=== PATIENT | female | born 1980 | race Caucasian/White ===

== ENCOUNTER 2016-07-24 17:23 | Emergency (ER) | payer OTHER, SELFPAY ==
[2016-07-24] MEDS ORDERED: methylPREDNISolone INJ 125 MG/2 ML VIAL (J2930) As Ordered ONE (18:40)
[2016-07-24] MEDS ORDERED: predniSONE 20 MG TAB As Ordered ONE (18:46)
[2016-07-24] MEDS ORDERED: IPRATROPIUM 0.5MG/ALBUTEROL 2.5MG INH SOL UD 3ML (DUONEB)(J7620) As Ordered ONE (18:47)
[2016-07-24] MEDS ORDERED: ALBUTEROL SULFATE 2.5 MG/0.5 ML INH NEB SOLN As Ordered ONE (19:00)
--- NOTE | 2016-07-24 19:34 | REP ---
Chest two views HISTORY: Shortness of breath Comparison: 09/07/2015 The lungs are clear. The heart is normal in size. The pulmonary vasculature is normal in appearance. The bony structure is intact. IMPRESSION: No acute disease. Signed by Dewey Cornelius MD 07/24/2016 07:25 P
--- NOTE | 2016-07-24 19:59 | EDDOCDS ---
Physician Documentation [facility] Name: Keya Garduno Age: 36 yrs Sex: Female : 1980 Arrival Date: 07/24/2016 Time: 17:23 Bed Private MD: NO PRIMARY PHYSICIAN, . Disposition: 07/24/16 19:40 Discharged to Home/Self Care. Impression: Mild intermittent asthma with (acute) exacerbation. - Condition is Stable. - Discharge Instructions: Asthma, Adult. - Prescriptions for Prednisone 20 mg Oral Tablet - take 2 tablet by ORAL route once daily for 5 days; 10 tablet. Albuterol Sulfate 90 mcg/actuation Inhalation HFA Aerosol Inhaler - inhale 2 puff by INHALATION route every 4 hours As needed; 1 Inhaler. Albuterol Sulfate 2.5 mg /3 mL (0.083 %) Inhalation Solution for Nebulization - inhale 1 unit by NEBULIZATION route 4 times per day As needed; 1 box. - Medication Reconciliation, Local Pharmacy Hours form. - [facility]; When: 2 - 3 days; Reason: Recheck today's complaints, Continuance of care. - Problem is new. - Symptoms have improved. Historical: - Allergies: Keflex (Swelling); - Home Meds: 1. loratadine 10 mg Oral tab 1 tab once daily - PMHx: Environmental allergies; Asthma; - PSHx: none; - Social history: Smoking status: Patient uses tobacco products, current every day smoker. No barriers to communication noted, The patient speaks fluent Macedonian. - Family history: No immediate family members are acutely ill. - : The pt / caregiver states he / she is not on anticoagulants. Home medication list is obtained from the patient. - Exposure Risk Screening:: None identified. 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 1 in. (154.94 cm) (R); Pain 4/10; 19:55 BP 147 / 82; Pulse 87; Resp 17; Temp 98; Pulse Ox 97% ; mb9 17:26 Body Mass Index 23.62 (56.70 kg, 154.94 cm) gr2 MDM: 18:19 Financial registration complete. gb 18:29 [facility] Payment Agreement was scanned into [employer] and attached to record. gb 18:30 methylPREDNISolone Sodium Succinate 125 mg IM once ordered. ck7 18:30 Albuterol-Ipratropium 3 ml Inhalation once ordered. ck7 18:30 Call Respiratory ordered. ck7 18:30 Peak Flow Pre & Post ordered. ck7 18:31 Chest, 2 View (pa\\E\\lat) Ordered. EDMS 18:32 Call Respiratory complete. ajs 18:43 ED course: PT QUESTIONING THE NEED FOR A CHEST X-RAY, EXPLAINED THAT PNEUMONIA AND ck7 PNEUMOTHORAX NEED TO BE RULED OUT, PT HAS DECREASED LUNG SOUNDS WITH ACTIVE WHEEZING. PT NOW REQUESTING PREDNISONE ORALLY, NOT SOLU-MEDROL INJECTION. WILL CHANGE ORDER TO PREDNISONE PER PATIENT'S REQUEST. 18:45 predniSONE 40 mg PO once; administer with food or milk ordered. ck7 19:00 Peak Flow Pre & Post complete. cs15 19:04 Albuterol 2.5 mg Nebulizer once ordered. ck7 Administered Medications: 18:45 Not Given (Patient Refused; pt refused stating, "Can't he give me prednisone? I know mb9 that works."): methylPREDNISolone Sodium Succinate 125 mg IM once 18:50 Drug: predniSONE 40 mg [prednisone 20 mg tablet (2 tabs)] Route: PO; mb9 18:52 Drug: Albuterol-Ipratropium 3 ml [ipratropium-albuterol 0.5 mg-3 mg(2.5 mg base)/3 mL cs15 nebulization soln (3 mL)] Route: Inhalation; 19:04 Drug: Albuterol 2.5 mg [albuterol sulfate 2.5 mg/0.5 mL solution for nebulization (0.5 cs15 mL)] Route: Nebulizer; Signatures: Dispatcher [employer] EDMS Shama Gloria, Roseanne Mae Christopher, RPA-C RPA-Cck7 Melanie Maloney RN RN ms18 Deangelo Akins RN RN mb9 Jagjit Lovett,RT RT cs15 The chart was reviewed and I authenticate all verbal orders and agree with the evaluation and treatment provided.Attachments: 18:29 [facility] Payment Agreement gb MTDD
--- NOTE | 2016-07-24 19:59 | EDDOCDS ---
Nurse's Notes [facility] Name: Keya Garduno Age: 36 yrs Sex: Female : 1980 Arrival Date: 07/24/2016 Time: 17:23 Bed PD Private MD: NO PRIMARY PHYSICIAN, . Diagnosis: Mild intermittent asthma with (acute) exacerbation Presentation: 07/24 17:28 Presenting complaint: Patient states: that she has asthma and states that her SOB has ms18 gotten worse over the last few hours. Pt states she ran out of albuterol. Adult Sepsis Screening: The patient does not have new or worsening altered mentation. Patient's respiratory rate is less than 22. Systolic blood pressure is greater than 100. Patient has a qSOFA score of 0- Negative Sepsis Screen. Suicide/Homicide risk assessment- the patient denies having any suicidal and/or homicidal ideations and does not present with any other emotional, behavioral or mental health complaints. Status: Patient is not a customer service representative teacher or dependent. Transition of care: patient was not received from another setting of care. 17:28 Acuity: ARACELI Level 3 ms18 17:28 Method Of Arrival: Walkin/Carried/Asstd ms18 Triage Assessment: 17:29 General: Appears in no apparent distress, comfortable, Behavior is appropriate for age, ms18 cooperative. Pain: Denies pain. Location: chest Quality of pain is described as tight. HIV screening NA for this visit Offered previously. Neurological: No deficits noted. Respiratory: Onset: The symptoms/episode began/occurred this morning, Airway is patent Respiratory effort is labored, Respiratory pattern is regular, symmetrical. Derm: Skin is pink, warm & dry. GENERAL HELPER: 17:29 LMP 07/19/2016 ms18 Historical: - Allergies: Keflex (Swelling); - Home Meds: 1. loratadine 10 mg Oral tab 1 tab once daily - PMHx: Environmental allergies; Asthma; - PSHx: none; - Social history: Smoking status: Patient uses tobacco products, current every day smoker. No barriers to communication noted, The patient speaks fluent Solomon Islander. - Family history: No immediate family members are acutely ill. - : The pt / caregiver states he / she is not on anticoagulants. Home medication list is obtained from the patient. - Exposure Risk Screening:: None identified. Screenin:55 Screening information is obtained from the patient. Fall risk: No risks identified. mb9 Assistance ADL's: requires no assistance with activities of daily living. Abuse/DV Screen: The patient / caregiver reports he/she is: not in a situation that causes fear, pain or injury. Nutritional screening: No deficits noted. Advance Directives: There is no active DNR order. home support is adequate. Assessment: 18:50 General: Appears uncomfortable, Behavior is fussy. Respiratory: Airway is patent mb9 Respiratory effort is even, labored, Breath sounds are coarse in left posterior lower lobe, right posterior middle lobe and right posterior lower lobe. 19:55 Reassessment: Patient appears in no apparent distress at this time. Patient states mb9 feeling better. Patient states symptoms have improved. Adult Sepsis Screening: The patient does not have new or worsening altered mentation. Patient's respiratory rate is less than 22. Systolic blood pressure is greater than 100. Patient has a qSOFA score of 0- Negative Sepsis Screen. General: Appears in no apparent distress, Behavior is appropriate for age, cooperative. Respiratory: Airway is patent Respiratory effort is even, unlabored, Breath sounds are clear bilaterally. Vital Signs: 17:26 BP 151 / 87; Pulse 87; Resp 18 S; Temp 97.8(O); Pulse Ox 98% on R/A; Weight 56.7 kg gr2 (R); Height 5 ft. 1 in. (154.94 cm) (R); Pain 4/10; 19:55 BP 147 / 82; Pulse 87; Resp 17; Temp 98; Pulse Ox 97% ; mb9 17:26 Body Mass Index 23.62 (56.70 kg, 154.94 cm) gr2 Vitals: 17:26 Log In Time: July 24, 2016 at 17:26. gr2 ED Course: 17:25 Patient visited by Neymar Schmitz. gr2 17:25 NO PRIMARY PHYSICIAN, . is Private Physician. gr2 17:25 Patient moved to Waiting gr2 17:27 Patient visited by Neymar Schmitz. gr2 17:27 Patient moved to Pre RCE gr2 17:29 Triage Initiated ms18 17:33 Patient moved to Triage 3 mlb1 18:05 Hugo Griffiths RPA-C [facility] ck7 18:05 Herman Corea MD is Attending Physician. ck7 18:06 Patient visited by Hugo Griffiths RPA-C. ck7 18:29 [facility] Payment Agreement was scanned into [employer] and attached to record. gb 18:34 Patient moved to PD2 / ajs 18:38 Patient visited by Hugo Griffiths RPA-C. ck7 19:11 Patient visited by Hugo Griffiths RPA-C. ck7 19:39 [facility] is Referral Physician. ck7 19:55 The patient / caregiver is instructed regarding the plan of care and ED course. mb9 19:55 No IV's were initiated during this patient's visit. No procedures done that require mb9 assistance. Administered Medications: 18:45 Not Given (Patient Refused; pt refused stating, "Can't he give me prednisone? I know mb9 that works."): methylPREDNISolone Sodium Succinate 125 mg IM once 18:50 Drug: predniSONE 40 mg [prednisone 20 mg tablet (2 tabs)] Route: PO; mb9 18:52 Drug: Albuterol-Ipratropium 3 ml [ipratropium-albuterol 0.5 mg-3 mg(2.5 mg base)/3 mL cs15 nebulization soln (3 mL)] Route: Inhalation; 19:04 Drug: Albuterol 2.5 mg [albuterol sulfate 2.5 mg/0.5 mL solution for nebulization (0.5 cs15 mL)] Route: Nebulizer; RT: 18:53 Initial Med Neb Given as ordered. Respiratory: Respiratory effort is labored, cs15 Respiratory pattern is regular Breath sounds are coarse bilaterally. Breath sounds with wheezes bilaterally. at expiration at inspiration. 19:00 Post Peak Flow: 250. cs15 19:08 Subsequent Med Neb Given as ordered. Respiratory: Breath sounds with wheezes at cs15 expiration. Order Results: There are currently no results for this order. Outcome: 19:40 Discharge ordered by Provider. ck7 19:55 Discharge Assessment: Patient awake, alert and oriented x 3. No cognitive and/or mb9 functional deficits noted. Patient verbalized understanding of disposition instructions. patient administered narcotics - no. The following High Risk Discharge criteria are identified: None. Discharged to home ambulatory. Condition: good Condition: stable Condition: improved. Discharge instructions given to patient, Instructed on discharge instructions, follow up and referral plans. medication usage, Demonstrated understanding of instructions, medications, Pt was receptive of discharge instructions/ teaching. Prescriptions given X 3. No special radiology studies were completed. Property :Personal belongings accompany Pt. 19:58 Patient left the ED. mb9 Signatures: Shama Gloria, Reg Reg gb Deangelo Higuera RN RN mlb1 Roseanne Cassidy Christopher, RPA-C RPA-Cck7 Neymar Schmitz gr2 Melanie Maloney,RN RN ms18 Deangelo AkinsRN RN mb9 Jagjit Lovett,RT RT cs15 MTDD
--- NOTE | 2016-07-26 20:59 | EDDOCDS ---
Physician Documentation [facility] Name: Keya Garduno Age: 36 yrs Sex: Female : 1980 Arrival Date: 07/24/2016 Time: 17:23 Bed Private MD: NO PRIMARY PHYSICIAN, . Disposition: 07/24/16 19:40 Discharged to Home/Self Care. Impression: Mild intermittent asthma with (acute) exacerbation. - Condition is Stable. - Discharge Instructions: Asthma, Adult. - Prescriptions for Prednisone 20 mg Oral Tablet - take 2 tablet by ORAL route once daily for 5 days; 10 tablet. Albuterol Sulfate 90 mcg/actuation Inhalation HFA Aerosol Inhaler - inhale 2 puff by INHALATION route every 4 hours As needed; 1 Inhaler. Albuterol Sulfate 2.5 mg /3 mL (0.083 %) Inhalation Solution for Nebulization - inhale 1 unit by NEBULIZATION route 4 times per day As needed; 1 box. - Medication Reconciliation, Local Pharmacy Hours form. - Follow up: [facility]; When: 2 - 3 days; Reason: Recheck today's complaints, Continuance of care. - Problem is new. - Symptoms have improved. Historical: - Allergies: Keflex (Swelling); - Home Meds: 1. loratadine 10 mg Oral tab 1 tab once daily - PMHx: Environmental allergies; Asthma; - PSHx: none; - Social history: Smoking status: Patient uses tobacco products, current every day smoker. No barriers to communication noted, The patient speaks fluent Uzbek. - Family history: No immediate family members are acutely ill. - : The pt / caregiver states he / she is not on anticoagulants. Home medication list is obtained from the patient. - Exposure Risk Screening:: None identified. OUTPATIENT SURGERY RN: 07/24 17:29 LMP 07/19/2016 ms18 Vital Signs: 17:26 BP 151 / 87; Pulse 87; Resp 18 S; Temp 97.8(O); Pulse Ox 98% on R/A; Weight 56.7 kg / gr2 125 lbs (R); Height 5 ft. 1 in. (154.94 cm) (R); Pain 4/10; 19:55 BP 147 / 82; Pulse 87; Resp 17; Temp 98; Pulse Ox 97% ; mb9 17:26 Body Mass Index 23.62 (56.70 kg, 154.94 cm) gr2 MDM: 18:19 Financial registration complete. gb 18:29 [facility] Payment Agreement was scanned into [employer] and attached to record. gb 18:30 methylPREDNISolone Sodium Succinate 125 mg IM once ordered. ck7 18:30 Albuterol-Ipratropium 3 ml Inhalation once ordered. ck7 18:30 Call Respiratory ordered. ck7 18:30 Peak Flow Pre & Post ordered. ck7 18:31 Chest, 2 View (pa\\E\\lat) Ordered. EDMS 18:32 Call Respiratory complete. ajs 18:43 ED course: PT QUESTIONING THE NEED FOR A CHEST X-RAY, EXPLAINED THAT PNEUMONIA AND ck7 PNEUMOTHORAX NEED TO BE RULED OUT, PT HAS DECREASED LUNG SOUNDS WITH ACTIVE WHEEZING. PT NOW REQUESTING PREDNISONE ORALLY, NOT SOLU-MEDROL INJECTION. WILL CHANGE ORDER TO PREDNISONE PER PATIENT'S REQUEST. 18:45 predniSONE 40 mg PO once; administer with food or milk ordered. ck7 19:00 Peak Flow Pre & Post complete. cs15 19:04 Albuterol 2.5 mg Nebulizer once ordered. ck7 02 10:06 T-Sheet-- Draft Copy was scanned into [employer] and attached to record. gb Administered Medications: 07/24 18:45 Not Given (Patient Refused; pt refused stating, "Can't he give me prednisone? I know mb9 that works."): methylPREDNISolone Sodium Succinate 125 mg IM once 18:50 Drug: predniSONE 40 mg [prednisone 20 mg tablet (2 tabs)] Route: PO; mb9 18:52 Drug: Albuterol-Ipratropium 3 ml [ipratropium-albuterol 0.5 mg-3 mg(2.5 mg base)/3 mL cs15 nebulization soln (3 mL)] Route: Inhalation; 19:04 Drug: Albuterol 2.5 mg [albuterol sulfate 2.5 mg/0.5 mL solution for nebulization (0.5 cs15 mL)] Route: Nebulizer; Signatures: Dispatcher [employer] EDMS Shama Gloria, Reg Reg gb Khanh, Roseanne ajs Hugo Griffiths, RPA-C RPA-Cck7 Melanie Maloney RN RN ms18 Deangelo Akins RN RN mb9 Jagjit Lovett,RT RT cs15 The chart was reviewed and I authenticate all verbal orders and agree with the evaluation and treatment provided.Attachments: 18:29 [facility] Payment Agreement gb 07/25 10:06 T-Sheet-- Draft Copy gb Chart Complete MTDD
--- NOTE | 2016-07-26 20:59 | EDDOCDS ---
Physician Documentation [facility] Name: Keya Garduno Age: 36 yrs Sex: Female : 1980 Arrival Date: 07/24/2016 Time: 17:23 Bed Private MD: NO PRIMARY PHYSICIAN, . Disposition: 07/24/16 19:40 Discharged to Home/Self Care. Impression: Mild intermittent asthma with (acute) exacerbation. - Condition is Stable. - Discharge Instructions: Asthma, Adult. - Prescriptions for Prednisone 20 mg Oral Tablet - take 2 tablet by ORAL route once daily for 5 days; 10 tablet. Albuterol Sulfate 90 mcg/actuation Inhalation HFA Aerosol Inhaler - inhale 2 puff by INHALATION route every 4 hours As needed; 1 Inhaler. Albuterol Sulfate 2.5 mg /3 mL (0.083 %) Inhalation Solution for Nebulization - inhale 1 unit by NEBULIZATION route 4 times per day As needed; 1 box. - Medication Reconciliation, Local Pharmacy Hours form. - Follow up: [facility]; When: 2 - 3 days; Reason: Recheck today's complaints, Continuance of care. - Problem is new. - Symptoms have improved. Historical: - Allergies: Keflex (Swelling); - Home Meds: 1. loratadine 10 mg Oral tab 1 tab once daily - PMHx: Environmental allergies; Asthma; - PSHx: none; - Social history: Smoking status: Patient uses tobacco products, current every day smoker. No barriers to communication noted, The patient speaks fluent Maltese. - Family history: No immediate family members are acutely ill. - : The pt / caregiver states he / she is not on anticoagulants. Home medication list is obtained from the patient. - Exposure Risk Screening:: None identified. DOUBLE CUTTER: 07/24 17:29 LMP 07/19/2016 ms18 Vital Signs: 17:26 BP 151 / 87; Pulse 87; Resp 18 S; Temp 97.8(O); Pulse Ox 98% on R/A; Weight 56.7 kg / gr2 125 lbs (R); Height 5 ft. 1 in. (154.94 cm) (R); Pain 4/10; 19:55 BP 147 / 82; Pulse 87; Resp 17; Temp 98; Pulse Ox 97% ; mb9 17:26 Body Mass Index 23.62 (56.70 kg, 154.94 cm) gr2 MDM: 18:19 Financial registration complete. gb 18:29 [facility] Payment Agreement was scanned into [employer] and attached to record. gb 18:30 methylPREDNISolone Sodium Succinate 125 mg IM once ordered. ck7 18:30 Albuterol-Ipratropium 3 ml Inhalation once ordered. ck7 18:30 Call Respiratory ordered. ck7 18:30 Peak Flow Pre & Post ordered. ck7 18:31 Chest, 2 View (pa\\E\\lat) Ordered. EDMS 18:32 Call Respiratory complete. ajs 18:43 ED course: PT QUESTIONING THE NEED FOR A CHEST X-RAY, EXPLAINED THAT PNEUMONIA AND ck7 PNEUMOTHORAX NEED TO BE RULED OUT, PT HAS DECREASED LUNG SOUNDS WITH ACTIVE WHEEZING. PT NOW REQUESTING PREDNISONE ORALLY, NOT SOLU-MEDROL INJECTION. WILL CHANGE ORDER TO PREDNISONE PER PATIENT'S REQUEST. 18:45 predniSONE 40 mg PO once; administer with food or milk ordered. ck7 19:00 Peak Flow Pre & Post complete. cs15 19:04 Albuterol 2.5 mg Nebulizer once ordered. ck7 02 10:06 T-Sheet-- Draft Copy was scanned into [employer] and attached to record. gb Administered Medications: 07/24 18:45 Not Given (Patient Refused; pt refused stating, "Can't he give me prednisone? I know mb9 that works."): methylPREDNISolone Sodium Succinate 125 mg IM once 18:50 Drug: predniSONE 40 mg [prednisone 20 mg tablet (2 tabs)] Route: PO; mb9 18:52 Drug: Albuterol-Ipratropium 3 ml [ipratropium-albuterol 0.5 mg-3 mg(2.5 mg base)/3 mL cs15 nebulization soln (3 mL)] Route: Inhalation; 19:04 Drug: Albuterol 2.5 mg [albuterol sulfate 2.5 mg/0.5 mL solution for nebulization (0.5 cs15 mL)] Route: Nebulizer; Signatures: Dispatcher [employer] EDMS Shama Gloria, Reg Reg gb Khanh, Roseanne ajs Hugo Griffiths, RPA-C RPA-Cck7 Melanie Maloney RN RN ms18 Deangelo Akins RN RN mb9 Jagjit Lovett,RT RT cs15 The chart was reviewed and I authenticate all verbal orders and agree with the evaluation and treatment provided.Attachments: 18:29 [facility] Payment Agreement gb 07/25 10:06 T-Sheet-- Draft Copy gb Chart Complete MTDD
--- NOTE | 2016-07-26 20:59 | EDDOCDS ---
Nurse's Notes [facility] Name: Keya Garduno Age: 36 yrs Sex: Female : 1980 Arrival Date: 07/24/2016 Time: 17:23 Bed PD Private MD: NO PRIMARY PHYSICIAN, . Diagnosis: Mild intermittent asthma with (acute) exacerbation Presentation: 07/24 17:28 Presenting complaint: Patient states: that she has asthma and states that her SOB has ms18 gotten worse over the last few hours. Pt states she ran out of albuterol. Adult Sepsis Screening: The patient does not have new or worsening altered mentation. Patient's respiratory rate is less than 22. Systolic blood pressure is greater than 100. Patient has a qSOFA score of 0- Negative Sepsis Screen. Suicide/Homicide risk assessment- the patient denies having any suicidal and/or homicidal ideations and does not present with any other emotional, behavioral or mental health complaints. 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 Transition of care: patient was not received from another setting of care. 17:28 Acuity: ARACELI Level 3 ms18 17:28 Method Of Arrival: Walkin/Carried/Asstd ms18 Triage Assessment: 17:29 General: Appears in no apparent distress, comfortable, Behavior is appropriate for age, ms18 cooperative. Pain: Denies pain. Location: chest Quality of pain is described as tight. HIV screening NA for this visit Offered previously. Neurological: No deficits noted. Respiratory: Onset: The symptoms/episode began/occurred this morning, Airway is patent Respiratory effort is labored, Respiratory pattern is regular, symmetrical. Derm: Skin is pink, warm & dry. 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 loratadine 10 mg Oral tab 1 tab once daily - PMHx: Environmental allergies; Asthma; - PSHx: none; - Social history: Smoking status: Patient uses tobacco products, current every day smoker. No barriers to communication noted, The patient speaks fluent Guatemalan. - Family history: No immediate family members are acutely ill. - : The pt / caregiver states he / she is not on anticoagulants. Home medication list is obtained from the patient. - Exposure Risk Screening:: None identified. Screenin:55 Screening information is obtained from the patient. Fall risk: No risks identified. mb9 Assistance ADL's: requires no assistance with activities of daily living. Abuse/DV Screen: The patient / caregiver reports he/she is: not in a situation that causes fear, pain or injury. Nutritional screening: No deficits noted. Advance Directives: There is no active DNR order. home support is adequate. Assessment: 18:50 General: Appears uncomfortable, Behavior is fussy. Respiratory: Airway is patent mb9 Respiratory effort is even, labored, Breath sounds are coarse in left posterior lower lobe, right posterior middle lobe and right posterior lower lobe. 19:55 Reassessment: Patient appears in no apparent distress at this time. Patient states mb9 feeling better. Patient states symptoms have improved. Adult Sepsis Screening: The patient does not have new or worsening altered mentation. Patient's respiratory rate is less than 22. Systolic blood pressure is greater than 100. Patient has a qSOFA score of 0- Negative Sepsis Screen. General: Appears in no apparent distress, Behavior is appropriate for age, cooperative. Respiratory: Airway is patent Respiratory effort is even, unlabored, Breath sounds are clear bilaterally. Vital Signs: 17:26 BP 151 / 87; Pulse 87; Resp 18 S; Temp 97.8(O); Pulse Ox 98% on R/A; Weight 56.7 kg gr2 (R); Height 5 ft. 1 in. (154.94 cm) (R); Pain 4/10; 19:55 BP 147 / 82; Pulse 87; Resp 17; Temp 98; Pulse Ox 97% ; mb9 17:26 Body Mass Index 23.62 (56.70 kg, 154.94 cm) gr2 Vitals: 17:26 Log In Time: July 24, 2016 at 17:26. gr2 ED Course: 17:25 Patient visited by Neymar Schmitz. gr2 17:25 NO PRIMARY PHYSICIAN, . is Private Physician. gr2 17:25 Patient moved to Waiting gr2 17:27 Patient visited by Neymar Schmitz. gr2 17:27 Patient moved to Pre RCE gr2 17:29 Triage Initiated ms18 17:33 Patient moved to Triage 3 mlb1 18:05 [facility] ck7 18:05 Herman Corea MD is Attending Physician. ck7 18:06 Patient visited by Hugo Griffiths RPA-C. ck7 18:29 [facility] Payment Agreement was scanned into [employer] and attached to record. gb 18:34 Patient moved to PD ajs 18:38 Patient visited by Hugo Griffiths RPA-C. ck7 19:11 Patient visited by Hugo Griffiths RPA-C. ck7 19:39 [facility] is Referral Physician. ck7 19:55 The patient / caregiver is instructed regarding the plan of care and ED course. mb9 19:55 No IV's were initiated during this patient's visit. No procedures done that require mb9 assistance. 19:59 Chest, 2 View (pa\\E\\lat) Returned. EDMS 07/25 10:06 T-Sheet-- Draft Copy was scanned into [employer] and attached to record. gb Administered Medications: 07/24 18:45 Not Given (Patient Refused; pt refused stating, "Can't he give me prednisone? I know mb9 that works."): methylPREDNISolone Sodium Succinate 125 mg IM once 18:50 Drug: predniSONE 40 mg [prednisone 20 mg tablet (2 tabs)] Route: PO; mb9 18:52 Drug: Albuterol-Ipratropium 3 ml [ipratropium-albuterol 0.5 mg-3 mg(2.5 mg base)/3 mL cs15 nebulization soln (3 mL)] Route: Inhalation; 19:04 Drug: Albuterol 2.5 mg [albuterol sulfate 2.5 mg/0.5 mL solution for nebulization (0.5 cs15 mL)] Route: Nebulizer; RT: 18:53 Initial Med Neb Given as ordered. Respiratory: Respiratory effort is labored, cs15 Respiratory pattern is regular Breath sounds are coarse bilaterally. Breath sounds with wheezes bilaterally. at expiration at inspiration. 19:00 Post Peak Flow: 250. cs15 19:08 Subsequent Med Neb Given as ordered. Respiratory: Breath sounds with wheezes at cs15 expiration. Order Results: Radiology Order: Chest, 2 View (pa\\E\\lat) Test: Chest, 2 View (pa\\E\\lat) REASON FOR EXAMINATION: Shortness of Breath; Chest two views; ; HISTORY: Shortness of breath; ; Comparison: 09/07/2015; ; The lungs are clear. The heart is normal in size. The pulmonary vasculature is; normal in appearance. The bony structure is intact.; ; IMPRESSION: No acute disease.; ; ; Signed by; Dewey Cornelius MD 07/24/2016 07:25 P; Outcome: 19:40 Discharge ordered by Provider. ck7 19:55 Discharge Assessment: Patient awake, alert and oriented x 3. No cognitive and/or mb9 functional deficits noted. Patient verbalized understanding of disposition instructions. patient administered narcotics - no. The following High Risk Discharge criteria are identified: None. Discharged to home ambulatory. Condition: good Condition: stable Condition: improved. Discharge instructions given to patient, Instructed on discharge instructions, follow up and referral plans. medication usage, Demonstrated understanding of instructions, medications, Pt was receptive of discharge instructions/ teaching. Prescriptions given X 3. No special radiology studies were completed. Property :Personal belongings accompany Pt. 19:58 Patient left the ED. mb9 Signatures: Dispatcher [employer] EDMS Shama Gloria, Levar Reg Deangelo Love, RN RN mlb1 Roseanne Cassidy Christopher, RPA-C [id number] Neymar Schmitz gr2 Melanie Maloney,RN RN ms18 Deangelo Akins,RN RN mb9 Jagjit Lovett,RT RT cs15 Chart Complete MTDD
== END 2016-07-24 19:58 | disposition home or self-care (01) ==
LOC: M ED 17:23
DX: J45.901 Unspecified asthma with (acute) exacerbation (principal); J30.2 Other seasonal allergic rhinitis; Z72.0 Tobacco use; Z79.899 Other long term (current) drug therapy; Z88.1 Allergy status to other antibiotic agents
CPT/HCPCS: 71020; 94640; 99283; J2930

== ENCOUNTER 2017-01-27 15:50 | Emergency (ER) | payer OTHER, SELFPAY ==
[~2017-01-27] VITALS: Ht 152.4 cm; Wt 62.7 kg
[2017-01-27] MEDS ORDERED: LORA10TA2 PO (16:42)
[2017-01-27] MEDS ORDERED: KETOROLAC 60 MG/2 ML VIAL (J1885) IM ONE (18:00)
[2017-01-27] MEDS ORDERED: NAPR500T PO (18:45)
[2017-01-27] MEDS ORDERED: IBUP-1022 PO (18:45)
[2017-01-27 19:11] VITALS: BP 136/71
--- NOTE | 2017-01-27 21:39 | REP ---
RIGHT ANKLE COMPLETE: 01/27/2017. Clinical history: Ankle pain, distal tibia pain. Findings: There are no prior pertinent studies. Four views show plantar calcaneal spur with trace spur at the Achilles insertion. Subtalar joints intact. Talonavicular and calcaneocuboid joints are normal. There is no visible or displaced fracture distal tibia or fibula. Mortise joint preserved. No talar dome osteochondral defect. Tarsal bones and visualized metatarsals intact. Impression: 1. Heel spurs without visible or displaced fracture, avulsion, disruption of the mortise joint or other acute finding. Signed by Jonathan Warren MD 01/28/2017 11:11 A
== END 2017-01-27 19:09 | disposition home or self-care (01) ==
LOC: M ED 15:50
DX: M77.31 Calcaneal spur, right foot (principal); F17.210 Nicotine dependence, cigarettes, uncomplicated; Z79.899 Other long term (current) drug therapy; Z88.1 Allergy status to other antibiotic agents
CPT/HCPCS: 73610; 96372; 99282; J1885

== ENCOUNTER 2017-05-02 04:34 | Emergency (ER) | payer OTHER ==
[~2017-05-02] VITALS: Ht 154.9 cm; Wt 63.6 kg
[~2017-05-02 04:34] MED LIST: IBUP-1022 PO; LORA10TA2 PO; NAPR500T PO
[2017-05-02] MEDS ORDERED: IPRATROPIUM 0.5MG/ALBUTEROL 2.5MG INH SOL UD 3ML (DUONEB)(J7620) As Ordered ONE (04:50)
[2017-05-02] MEDS ORDERED: AUGM500T34 PO (04:59)
[2017-05-02] MEDS ORDERED: PRED20TA PO (04:59)
[2017-05-02] MEDS ORDERED: IPRATROPIUM 0.5MG/ALBUTEROL 2.5MG INH SOL UD 3ML (DUONEB)(J7620) NEB ONE (05:00)
[2017-05-02] MEDS ORDERED: methylPREDNISolone INJ 125 MG/2 ML VIAL (J2930) IM ONE (05:00)
[2017-05-02 05:28] VITALS: BP 132/72
--- NOTE | 2017-05-02 08:36 | REP ---
Clinical: Shortness of breath . Comparison: 07/24/2016 . Technique: PA and lateral. Findings: The mediastinum and cardiac silhouette are normal. The lung dean are clear and without acute consolidation, effusion, or pneumothorax. The skeletal structures are intact and normal. Impression: 1. No acute cardiopulmonary process. Signed by Major Silver MD 05/02/2017 08:27 A
[2017-05-03] MEDS ORDERED: PRED20TA PO (09:20)
[2017-05-03] MEDS ORDERED: AUGM500T34 PO (09:20)
[2017-05-03] MEDS ORDERED: IBUPOTC PO (09:20)
== END 2017-05-02 05:31 | disposition home or self-care (01) ==
LOC: M ED 04:34
DX: J40 Bronchitis, not specified as acute or chronic (principal); J32.9 Chronic sinusitis, unspecified; F17.210 Nicotine dependence, cigarettes, uncomplicated; Z79.899 Other long term (current) drug therapy; Z88.1 Allergy status to other antibiotic agents
CPT/HCPCS: 71020; 94640; 96372; 99283; J2930

== ENCOUNTER 2017-05-03 07:00 | Observation (INO) | payer OTHER ==
[~2017-05-03] VITALS: Ht 154.9 cm; Wt 64.7 kg
[~2017-05-03 07:00] MED LIST changes: +AUGM500T34 PO; +PRED20TA PO
[2017-05-03] MEDS ORDERED: predniSONE 20 MG TAB PO ONE (07:30)
[2017-05-03] MEDS ORDERED: diphenhydrAMINE 50 MG CAP PO ONE (07:30)
[2017-05-03] MEDS: IPRATROPIUM 0.5MG/ALBUTEROL 2.5MG INH SOL UD 3ML (DUONEB)(J7620) NEB PRN ×3 (07:32→08:36)
[2017-05-03 07:50] LABS: BASO # 0.1 10^3/uL (0.0-0.2); BASO % 0.2 % (0.0-1.0); IMMATURE GRANULOCYTE % 1.1 % (0-0); LYMPH # 2.3 10^3/uL (1.5-4.5); LYMPH % 7.9 % (24.0-44.0); MEAN CORPUSCULAR HEMOGLOBIN 32.9 pg (27.0-33.0); MEAN CORPUSCULAR HGB CONC 34.3 g/dl (32.0-36.5); MEAN CORPUSCULAR VOLUME 95.7 fl (80.0-96.0); MONO # 0.5 10^3/uL (0.0-0.8); MONO % 1.7 % (0.0-5.0); NEUTROPHILS % 89.1 % (36.0-66.0); PLATELET COUNT, AUTOMATED 439 10^3/uL (150-450); WHITE BLOOD COUNT 28.8 10^3/uL (4.0-10.0)
[2017-05-03 07:58] LABS: CONTROL LINE HCG INT CTR LINE PRESENT
[2017-05-03 08:07] LABS: ALBUMIN 4.3 GM/DL (3.2-5.2); ALBUMIN/GLOBULIN RATIO 0.91 (1.00-1.93); ALKALINE PHOSPHATASE 74 U/L (45-117); ALT/SGPT 33 U/L (12-78); ANION GAP 8 MEQ/L (8-16); AST/SGOT 28 U/L (7-37); BILIRUBIN,DIRECT < 0.1 MG/DL (0.0-0.2); BILIRUBIN,TOTAL 0.2 MG/DL (0.2-1.0); BLOOD UREA NITROGEN 10 MG/DL (7-18); CALCIUM LEVEL 9.2 MG/DL (8.5-10.1); CARBON DIOXIDE LEVEL 25 MEQ/L (21-32); CHLORIDE LEVEL 107 MEQ/L (98-107); CREATININE FOR GFR 0.86 MG/DL (0.55-1.02); GLOMERULAR FILTRATION RATE > 60.0 (>60); GLUCOSE, FASTING 145 MG/DL (70-105); SODIUM LEVEL 140 MEQ/L (136-145); THYROXINE (T4) 9.6 UG/DL (4.5-12.0)
[2017-05-03 08:13] LABS: NEUTROPHILS # 25.6 10^3/uL (1.8-7.7); POSITIVE DIFF POS FLAG
[2017-05-03] MEDS ORDERED: NS 1,000 ML IV ONE (08:30)
[2017-05-03] MEDS ORDERED: ONDANSETRON 4MG/2ML VIAL (J2405) IV PRN (09:00)
[2017-05-03] MEDS ORDERED: MOXIFLOXACIN HCL 400 MG in APPROPRIATE DILUENT 1 EA IV ONE (09:00)
[2017-05-03 09:09] LABS: INR 0.96
--- NOTE | 2017-05-03 09:09 | REP ---
Clinical: Cough and dyspnea . Comparison: 05/02/2017 . Findings: The mediastinum and cardiac silhouette are stable and within normal limits for portable technique. The lung dean are clear without acute consolidation, effusion, or pneumothorax. Skeletal structures are intact. Impression: No acute cardiopulmonary process appreciated. Signed by Major Silver MD 05/03/2017 09:01 A
[2017-05-03] MEDS ORDERED: IBUPOTC PO (09:20)
[2017-05-03] MEDS ORDERED: PRED20TA PO (09:20)
[2017-05-03] MEDS ORDERED: AUGM500T34 PO (09:20)
[2017-05-03 10:05] VITALS: BP 150/72
[2017-05-03] MEDS: ALBUTEROL SULFATE 2.5 MG/0.5 ML INH NEB SOLN NEB PRN ×3 (11:36→23:46)
[2017-05-03] MEDS ORDERED: SODIUM CHLORIDE 0.9% 1000 ML IV ONE (13:00)
[2017-05-03] MEDS: IPRATROPIUM 0.5MG/ALBUTEROL 2.5MG INH SOL UD 3ML (DUONEB)(J7620) NEB SCH ×3 (13:24→22:11)
[2017-05-03 14:00] VITALS: BP 135/76
[2017-05-03] MEDS: ACETAMINOPHEN 500 MG TAB PO PRN ×2 (14:06→20:21)
[2017-05-03] MEDS: BUDESONIDE 180MCG INHALER (PULMICORT FLEXHALER) INH SCH ×2 (14:30→19:59)
[2017-05-03] MEDS ORDERED: ISOVUE-370 76% 100ML VIAL (Q9967) As Ordered ONE (16:50)
[2017-05-03 17:04] LABS: ABG BASE EXCESS -3.4 (-2.0-2.0); ABG HCO3 19.5 MEQ/L (22.0-26.0); ABG PARTIAL PRESSURE CO2 29.4 mmHg (35.0-45.0); ABG PARTIAL PRESSURE O2 61.2 mmHg (75.0-100.0); ABG STANDARD HCO3 21.6 MEQ/L (22.0-26.0); ABG TOTAL CO2 20.4 MEQ/L (22.0-29.0); ABG pH (ARTERIAL) 7.439 UNITS (7.350-7.450)
--- NOTE | 2017-05-03 17:10 | HPE ---
DATE OF ADMISSION: 05/03/2017 PRIMARY CARE PROVIDER: None. PAST MEDICAL HISTORY: Seasonal allergies. CHIEF COMPLAINT: Sudden onset shortness of breath following intake of antibiotics, which did not improve after taking steroids and loratadine. HISTORY OF PRESENT ILLNESS: This is a 36-year-old female smoker, smokes about one pack per day, who has been sick for the past 2-3 days with cough, cold, and congestion. She came to the emergency room on 05/02/2017, when she was diagnosed with acute bronchitis. She was given nebulizers in the emergency room with prednisone and discharged home with oral Augmentin and prednisone. Patient went home and had two doses of antibiotics at 4 p.m. and 8 p.m. on 05/02/2017, and then went to sleep. Woke up in the middle of the night severely short of breath, gasping for air, could not breathe. She took her two doses of prednisone, as well as her loratadine. She felt a little better, went back to sleep, however woke up early in the morning, again with severe shortness of breath. She was almost blue, could not talk in sentences, so came back to the emergency room. In the emergency room, she was found to have acute hypoxic respiratory failure. She was given several nebulizers, steroid, as well as oxygen supplementation. After that, she felt a little better, however she still continued to be hypoxic in room air, so was admitted to the hospitalist service. She also received one dose of moxifloxacin in the emergency room. In the emergency department (ED), her blood work showed a white count of 28.8, her lactate was elevated to 2.6. Chest x-ray did not show any acute cardiopulmonary process. On my interview, patient said her symptoms were a little better and her breathing is improving. Denied any fever or chills. Denied any nausea, vomiting, or diarrhea. Denied any cough or phlegm. Denied any abdominal pain. She has been admitted to the hospitalist service for acute respiratory failure with hypoxia, post-infectious bronchospasm, and acute bronchitis. HOME MEDICATIONS: - loratadine PAST SURGICAL HISTORY: Dilatation and curettage (D and C). SOCIAL HISTORY: Patient is a smoker, smokes about one pack per day. Does not abuse alcohol or recreational drugs. ALLERGIES: CEPHALOSPORIN, causes lip swelling. FAMILY HISTORY: Nothing significant. REVIEW OF SYSTEMS: All ten point review of systems are negative, except those mentioned in history of present illness (HPI). PHYSICAL EXAMINATION: VITAL SIGNS: Temperature 99.1, pulse 100, respiratory rate 17, blood pressure 150/72, pulse oximetry 95% with 2 liters nasal cannula. GENERAL: Patient awake, alert, oriented times three, sitting up in bed in no acute distress. HEENT: Normocephalic, atraumatic. Moist mucous membranes. Anicteric eyes. CHEST: Bilateral scattered wheezes, no crackles. CARDIOVASCULAR: S1, S2, regular. No rub, murmur, or gallop. ABDOMEN: Soft, nontender. Bowel sounds present. EXTREMITIES: No edema. LABORATORY DATA: WBC 28.8, hemoglobin 16, platelets 439. Neutrophil 89%, sodium 140, potassium 4, chloride 107, bicarbonate 25, BUN 10, creatinine 0.8, glucose 145, liver function tests are normal, lactate 2.6. TSH normal. Coagulation profile normal. Influenza antigen negative. Blood cultures have been ordered. ASSESSMENT: This is a 36-year-old female admitted for acute respiratory failure with hypoxia due to acute post-infectious bronchospasm, possibly related to acute bronchitis and upper respiratory tract viral infection. PLAN: 1. Acute respiratory failure with hypoxia. Will continue the patient on oxygen supplementation. 2. Acute post-infectious bronchospasm. Will continue the patient on DuoNebs. Will also give budesonide nebulizers. Will continue the patient on prednisone. 3. Acute bronchitis. Most probably viral in nature, however will empirically cover with antibiotics. Patient has already received moxifloxacin. Will continue the patient on levofloxacin. 4. Allergic reaction to medication. Unsure whether this was actually allergic reaction to Augmentin or not, though patient herself is convinced it was as she is allergic to CEPHALOSPORIN. However, I feel that it was more of an acute infectious bronchospasm because of upper respiratory infection, but in view of patient's conscience, we will withhold giving her further Augmentin or amoxicillin. 5. Tobacco abuse. Patient is an everyday smoker. Patient may have some underlying chronic bronchitis. Advised smoking cessation. 6. Seasonal allergies. Will continue with loratadine. 7. Deep venous thrombosis (DVT) prophylaxis has been ordered.
--- NOTE | 2017-05-03 17:52 | REP ---
Clinical: Acute chest pain. Technique: Axial contrast enhanced images from the thoracic inlet to the upper abdomen using 100 ml Isovue 370 intravenous contrast material with coronal and sagittal MIP re-formations. Findings: Small to moderate areas of consolidation involving the perihilar and posterior apical left upper lobe as well as right lower lobe consistent with multifocal atelectasis/early pneumonia. No effusion or pneumothorax. Tracheobronchial tree is patent. No significant adenopathy. Mediastinum demonstrates normal thoracic aorta and heart/pericardium. The pulmonary vasculature demonstrates satisfactory enhancement and there is no evidence for pulmonary embolus. Surrounding musculoskeletal structures are intact. Impression: 1. No evidence for pulmonary embolus. 2. Small to moderate patchy opacities in the left upper lobe and right lower lobe consistent with multifocal atelectasis/early pneumonia. Signed by Major Silver MD 05/03/2017 05:44 P
--- NOTE | 2017-05-03 17:55 | REP ---
Clinical: Sinusitis. Technique: Axial noncontrast images through the maxillofacial region with coronal and sagittal re-formations Findings: Moderate opacification and mucoperiosteal changes involving the frontal, ethmoid, maxillary and sphenoid sinuses along with small fluid level in the left maxillary sinus is consistent with acute/chronic sinusitis. Mucosal thickening opacifies and occludes the bilateral ostiomeatal complexes. The osseous structures are intact and relatively normal without chronic destructive changes. The bilateral orbits including globes and intraconal contents are symmetric and normal. The surrounding bony structures are normal. Impression: Findings consistent with mild/moderate mcdrr-xw-pejabod sinusitis. Signed by Major Silver MD 05/03/2017 05:46 P
--- NOTE | 2017-05-03 18:13 | ECGEPIP ---
Stationary ECG Study [facility] Test Date: 2017-05-03 Pat Name: SCOOBY SMITH Department: Room: [place] [address] Gender: F Director Of National Sales: : 1980 Requested By: [place] JOHN Order Number: [id number] Reading MD: Wilian Santos Measurements Intervals [place] Rate: 118 P: 80 WV: 108 QRS: 44 QRSD: 99 T: 56 QT: 340 QTc: 477 Interpretive Statements Sinus tachycardia Short [place] Incomplete right bundle branch block Nonspecific ST-T wave abnormalities Compared to prior tracing of earlier this date, heart rate is faster and repolarization abnormalities are more pronounced Electronically Signed On 05-03-2017 18:13:10 EST by Wilian Santos
[2017-05-03] MEDS: NS 1,000 ML IV SCH (18:15)
[2017-05-03] MEDS ORDERED: IPRATROPIUM 0.5MG/ALBUTEROL 2.5MG INH SOL UD 3ML (DUONEB)(J7620) NEB ONE (18:45)
[2017-05-03] MEDS ORDERED: ALBUTEROL SULFATE 2.5 MG/0.5 ML INH NEB SOLN NEB ONE (18:45)
[2017-05-03] MEDS: MAG SULF 1GM/100ML (MAG RUN) 1 GM in APPROPRIATE DILUENT 1 EA IV SCH ×2 (20:11→21:56)
[2017-05-03 21:41] LABS: PHOSPHORUS LEVEL 1.9 MG/DL (2.5-4.9)
[2017-05-03 22:00] VITALS: BP 129/78
[2017-05-04] MEDS: NS 1,000 ML IV SCH ×2 (00:48→05:10)
[2017-05-04] MEDS: ALBUTEROL SULFATE 2.5 MG/0.5 ML INH NEB SOLN NEB PRN ×6 (01:05→23:27)
[2017-05-04] MEDS: LevoFLOXacin 500 MG TABLET PO SCH (05:52)
[2017-05-04 06:00] VITALS: BP 119/74
[2017-05-04] MEDS: IPRATROPIUM 0.5MG/ALBUTEROL 2.5MG INH SOL UD 3ML (DUONEB)(J7620) NEB SCH ×3 (07:40→20:00)
[2017-05-04] MEDS: BUDESONIDE 180MCG INHALER (PULMICORT FLEXHALER) INH SCH ×2 (07:41→18:29)
[2017-05-04] MEDS ORDERED: FUROSEMIDE 40 MG/4 ML VIAL (J1940) IV ONE (07:45)
[2017-05-04] MEDS: LORATADINE 10 MG TAB PO SCH (07:48)
[2017-05-04] MEDS: predniSONE 20 MG TAB PO SCH (07:48)
[2017-05-04 08:32] LABS: BASO % 0.1 % (0.0-1.0); EOS # 0.2 10^3/uL (0.0-0.50); EOS % 0.7 % (0.0-3.0); IMMATURE GRANULOCYTE % 0.8 % (0-0); LYMPH # 2.5 10^3/uL (1.5-4.5); LYMPH % 11.7 % (24.0-44.0); MEAN CORPUSCULAR HGB CONC 34.4 g/dl (32.0-36.5); MONO # 1.5 10^3/uL (0.0-0.8); MONO % 7.1 % (0.0-5.0); NEUTROPHILS # 17.3 10^3/uL (1.8-7.7); NEUTROPHILS % 79.6 % (36.0-66.0); PLATELET COUNT, AUTOMATED 321 10^3/uL (150-450); RED CELL DISTRIBUTION WIDTH 13.2 % (11.5-14.5); WHITE BLOOD COUNT 21.8 10^3/uL (4.0-10.0)
[2017-05-04 08:52] LABS: ANION GAP 7 MEQ/L (8-16); BLOOD UREA NITROGEN 3 MG/DL (7-18); CALCIUM LEVEL 7.9 MG/DL (8.5-10.1); CARBON DIOXIDE LEVEL 26 MEQ/L (21-32); CHLORIDE LEVEL 110 MEQ/L (98-107); CREATININE FOR GFR 0.61 MG/DL (0.55-1.02); GLOMERULAR FILTRATION RATE > 60.0 (>60); GLUCOSE, FASTING 107 MG/DL (70-105); POTASSIUM SERUM 3.6 MEQ/L (3.5-5.1); SODIUM LEVEL 143 MEQ/L (136-145)
[2017-05-04] MEDS: FORMOTEROL FUMARATE 20 MCG/2 ML INHALATION SOLUTION (PERFOROMIST) INH SCH ×2 (11:27→18:29)
--- NOTE | 2017-05-04 13:46 | IPNPDOC ---
Subjective Date Seen The patient was seen on 05/04/17. Subjective Chief Complaint/HPI The patient is a 36-year-old female admitted with a reason for visit of Acute Bronchitis,Hypoxia. Assessment /Plan Problems (1) Acute bronchitis Status: Acute Problem Text: will continue with levofloxacin. (2) Acute respiratory failure with hypoxia Status: Resolved Problem Text: Due to acute bronchospasm will continue with albuterol, budesonide, formoterol, prednisone, oxygen (3) Post-infection bronchospasm Status: Acute (4) Cigarette smoker Status: Chronic Problem Text: May have underlying chronic bronchitis counselled about smoking cessation (5) Lactic acidosis Status: Resolved Problem Text: due to increased work of breathing and albuterol use. (6) Leucocytosis Status: Acute Problem Text: due to methyl prednisone , prednisone and acute bronchitis Plan/VTE VTE Prophylaxis Ordered?: Yes VS, I&O, 24H, Fishbone Vital Signs/I&O Vital Signs Date Time Temp Pulse Resp B/P (MAP) Pulse Ox O2 Delivery O2 Flow Rate FiO2 05/04/17 08:00 Nasal Cannula 3.5 05/04/17 06:00 98.3 102 20 119/74 (89) 95 Laboratory Data 24H LABS Laboratory Tests 2 05/03/17 15:53: Lactic Acid Level 3.9*H 05/03/17 16:58: Blood Gas Bicarbonate Standard 21.6L, Arterial Blood pH 7.439, Arterial Blood Partial Pressure CO2 29.4L, Arterial Blood Partial Pressure O2 61.2L, Arterial Blood Total CO2 20.4L, Arterial Blood HCO3 19.5L, Arterial Blood Base Excess - 3.4L, Arterial Blood Oxygen Saturation 93.2L 05/03/17 20:06: Lactic Acid Followup at 4 Hours 3.9*H 05/03/17 21:15: Phosphorus Level 1.9L, Magnesium Level 2.0 05/04/17 08:23: Immature Granulocyte % (Auto) 0.8H, White Blood Count 21.8H, Red Blood Count 3.97L, Hemoglobin 13.1#, Hematocrit 38.1, Mean Corpuscular Volume 96.0, Mean Corpuscular Hemoglobin 33.0, Mean Corpuscular Hemoglobin Concent 34.4, Red Cell Distribution Width 13.2, Platelet Count 321, Neutrophils (%) (Auto) 79.6H, Lymphocytes (%) (Auto) 11.7L, Monocytes (%) (Auto) 7.1H, Eosinophils (%) (Auto) 0.7, Basophils (%) (Auto) 0.1, Neutrophils # (Auto) 17.3H, Lymphocytes # (Auto) 2.5, Monocytes # (Auto) 1.5H, Eosinophils # (Auto) 0.2, Basophils # (Auto) 0.0, Immature Granulocyte # (Auto) 0.2H, Nucleated Red Blood Cells % (auto) 0.0, Anion Gap 7L, Glomerular Filtration Rate > 60.0, Lactic Acid Level 3.1*H, Blood Urea Nitrogen 3#L, Creatinine 0.61, Sodium Level 143, Potassium Level 3.6, Chloride Level 110H, Carbon Dioxide Level 26, Calcium Level 7.9L 05/04/17 12:36: CBC/BMP Laboratory Tests 05/04/17 08:23 Red Blood Count 3.97 L, Mean Corpuscular Volume 96.0, Mean Corpuscular Hemoglobin 33.0, Mean Corpuscular Hemoglobin Concent 34.4, Red Cell Distribution Width 13.2, Neutrophils (%) (Auto) 79.6 H, Lymphocytes (%) (Auto) 11.7 L, Monocytes (%) (Auto) 7.1 H, Eosinophils (%) (Auto) 0.7, Basophils (%) ( Auto) 0.1, Neutrophils # (Auto) 17.3 H, Lymphocytes # (Auto) 2.5, Monocytes # ( Auto) 1.5 H, Eosinophils # (Auto) 0.2, Basophils # (Auto) 0.0, Calcium Level 7.9 L Microbiology Microbiology 05/03/17 Blood Culture - Preliminary, Resulted No growth after 24 hours . All specim... 05/03/17 Blood Culture - Preliminary, Resulted No growth after 24 hours . All specim... 05/03/17 Influenza Virus Type A Antigen - Final, Complete 05/03/17 Influenza Virus Type B Antigen - Final, Complete KALEB HARE MD May 04, 2017 13:45
[2017-05-04 14:00] VITALS: BP 133/67
[2017-05-04] MEDS ORDERED: SODIUM PHOSPHATE INJ 30 MMOL in D5W 500 ML IV ONE (15:00)
[2017-05-04 20:15] VITALS: BP 121/65
[2017-05-05 00:15] VITALS: BP 117/56
[2017-05-05] MEDS: IPRATROPIUM 0.5MG/ALBUTEROL 2.5MG INH SOL UD 3ML (DUONEB)(J7620) NEB SCH ×2 (02:00→07:47)
[2017-05-05] MEDS: ALBUTEROL SULFATE 2.5 MG/0.5 ML INH NEB SOLN NEB PRN (03:17)
[2017-05-05 04:10] VITALS: BP 128/65
[2017-05-05] MEDS: ACETAMINOPHEN 500 MG TAB PO PRN (04:36)
[2017-05-05] MEDS: LevoFLOXacin 500 MG TABLET PO SCH (05:52)
[2017-05-05 06:57] LABS: BASO % 0.2 % (0.0-1.0); EOS # 0.6 10^3/uL (0.0-0.50); EOS % 4.2 % (0.0-3.0); IMMATURE GRANULOCYTE % 0.6 % (0-0); LYMPH # 2.8 10^3/uL (1.5-4.5); LYMPH % 20.6 % (24.0-44.0); MEAN CORPUSCULAR HEMOGLOBIN 32.8 pg (27.0-33.0); MEAN CORPUSCULAR HGB CONC 34.8 g/dl (32.0-36.5); MEAN CORPUSCULAR VOLUME 94.3 fl (80.0-96.0); MONO # 0.9 10^3/uL (0.0-0.8); MONO % 6.8 % (0.0-5.0); NEUTROPHILS # 9.1 10^3/uL (1.8-7.7); NEUTROPHILS % 67.6 % (36.0-66.0); PLATELET COUNT, AUTOMATED 297 10^3/uL (150-450); RED CELL DISTRIBUTION WIDTH 13.3 % (11.5-14.5); WHITE BLOOD COUNT 13.5 10^3/uL (4.0-10.0)
[2017-05-05 07:17] LABS: ANION GAP 8 MEQ/L (8-16); BLOOD UREA NITROGEN 6 MG/DL (7-18); CALCIUM LEVEL 8.4 MG/DL (8.5-10.1); CARBON DIOXIDE LEVEL 26 MEQ/L (21-32); CHLORIDE LEVEL 107 MEQ/L (98-107); GLOMERULAR FILTRATION RATE > 60.0 (>60); GLUCOSE, FASTING 93 MG/DL (70-105); POTASSIUM SERUM 3.3 MEQ/L (3.5-5.1); SODIUM LEVEL 141 MEQ/L (136-145)
[2017-05-05] MEDS: FORMOTEROL FUMARATE 20 MCG/2 ML INHALATION SOLUTION (PERFOROMIST) INH SCH (07:47)
[2017-05-05] MEDS: BUDESONIDE 180MCG INHALER (PULMICORT FLEXHALER) INH SCH (07:48)
[2017-05-05 08:00] VITALS: BP 126/78
--- NOTE | 2017-05-05 08:18 | ECGEPIP ---
Stationary ECG Study [facility] Test Date: 2017-05-03 Pat Name: SCOOBY SIMTH Department: Room: - Gender: F Commercial Finance Analyst: raquel : 1980 Requested By: Alaina Batres Order Number: [id number] Reading MD: Jaxon Garza Measurements Intervals [place] Rate: 91 P: 79 [place]: 137 QRS: 44 QRSD: 85 T: 50 QT: 339 QTc: 417 Interpretive Statements SINUS RHYTHM POSSIBLE LEFT ATRIAL ENLARGEMENT INCOMPLETE RIGHT BUNDLE BRANCH BLOCK NO PRIORS FOR COMPARISON Electronically Signed On 05-05-2017 8:18:16 EST by Jaxon Garza
[2017-05-05] MEDS: predniSONE 20 MG TAB PO SCH (08:53)
[2017-05-05] MEDS: LORATADINE 10 MG TAB PO SCH (08:53)
[2017-05-05] MEDS ORDERED: LEVA1TAB2 PO (09:50)
[2017-05-05] MEDS ORDERED: PRED20TA PO (09:50)
[2017-05-05] MEDS ORDERED: PROAAER10 INH (09:50)
[2017-05-05] MEDS ORDERED: SYMB80INH INH (09:50)
--- NOTE | 2017-05-05 14:20 | IPNPDOC ---
Subjective Date Seen The patient was seen on 05/05/17. Subjective Chief Complaint/HPI The patient is a 36-year-old female admitted with a reason for visit of Acute Bronchitis,Hypoxia. Events since last encounter Sob better this am , was able to sleep a little last night . no fever or chills , no cough or phlegm , still continues to have some nasal congestion Objective Physical Examination General Exam: Positive: Alert, Cooperative, No Acute Distress Eye Exam: Positive: PERRLA, Conjunctiva & lids normal, EOMI, Negative: Sclera icteric ENT Exam: Positive: Atraumatic, Mucous membr. moist/pink, Pharynx Normal Neck Exam: Positive: Supple, Negative: JVD, thyromegaly Chest Exam: Positive: Normal air movement, Wheezing Heart Exam: Positive: Rate Normal, Regular Rhythm, Normal S1, Normal S2, Negative: Murmurs, Rubs Abdomen Exam: Positive: Normal bowel sounds, Soft, Negative: Tenderness, Hepatospenomegaly Extremity Exam: Positive: Normal pulses, Negative: Clubbing, Cyanosis, Edema Skin Exam: Positive: Nl turgor and temperature, Negative: Rash, Breakdown Assessment /Plan Problems (1) Acute bronchitis Status: Acute Problem Text: will continue with levofloxacin. (2) Acute respiratory failure with hypoxia Status: Resolved Problem Text: Due to acute bronchospasm will continue with albuterol, budesonide, formoterol, prednisone, (3) Post-infection bronchospasm Status: Acute (4) Cigarette smoker Status: Chronic Problem Text: May have underlying chronic bronchitis counselled about smoking cessation (5) Lactic acidosis Status: Resolved Problem Text: due to increased work of breathing and albuterol use. (6) Leucocytosis Status: Acute Problem Text: due to methyl prednisone , prednisone and acute bronchitis Plan/VTE VTE Prophylaxis Ordered?: Yes Disposition Patient discharged home. New PMD has been set up for the patient. VS, I&O, 24H, Fishbone Vital Signs/I&O Vital Signs Date Time Temp Pulse Resp B/P (MAP) Pulse Ox O2 Delivery O2 Flow Rate FiO2 05/05/17 08:30 Room Air 05/05/17 08:00 98.1 85 20 126/78 (94) 97 05/05/17 04:10 1.0 I&O- Last 24 Hours up to 6 AM 05/06/17 06:00 Intake Total 480 ml Output Total 600 ml Balance -120 ml Laboratory Data 24H LABS Laboratory Tests 2 05/05/17 06:44: Immature Granulocyte % (Auto) 0.6H, White Blood Count 13.5H, Red Blood Count 3.84L, Hemoglobin 12.6, Hematocrit 36.2, Mean Corpuscular Volume 94.3, Mean Corpuscular Hemoglobin 32.8, Mean Corpuscular Hemoglobin Concent 34.8, Red Cell Distribution Width 13.3, Platelet Count 297, Neutrophils (%) (Auto) 67.6H, Lymphocytes (%) (Auto) 20.6L, Monocytes (%) (Auto) 6.8H, Eosinophils (%) (Auto) 4.2H, Basophils (%) (Auto) 0.2, Neutrophils # (Auto) 9.1H, Lymphocytes # (Auto) 2.8, Monocytes # (Auto) 0.9H, Eosinophils # (Auto) 0.6H, Basophils # (Auto) 0.0 , Immature Granulocyte # (Auto) 0.1H, Nucleated Red Blood Cells % (auto) 0.0, Anion Gap 8, Glomerular Filtration Rate > 60.0, Lactic Acid Level 1.5, Blood Urea Nitrogen 6#L, Creatinine 0.70, Sodium Level 141, Potassium Level 3.3L, Chloride Level 107, Carbon Dioxide Level 26, Calcium Level 8.4L CBC/BMP Laboratory Tests 05/05/17 06:44 Red Blood Count 3.84 L, Mean Corpuscular Volume 94.3, Mean Corpuscular Hemoglobin 32.8, Mean Corpuscular Hemoglobin Concent 34.8, Red Cell Distribution Width 13.3, Neutrophils (%) (Auto) 67.6 H, Lymphocytes (%) (Auto) 20.6 L, Monocytes (%) (Auto) 6.8 H, Eosinophils (%) (Auto) 4.2 H, Basophils (%) (Auto) 0.2, Neutrophils # (Auto) 9.1 H, Lymphocytes # (Auto) 2.8, Monocytes # ( Auto) 0.9 H, Eosinophils # (Auto) 0.6 H, Basophils # (Auto) 0.0, Calcium Level 8.4 L Microbiology Microbiology 05/03/17 Blood Culture - Preliminary, Resulted No Growth after 48 hours. All Specime... 05/03/17 Blood Culture - Preliminary, Resulted No Growth after 48 hours. All Specime... 05/03/17 Influenza Virus Type A Antigen - Final, Complete 05/03/17 Influenza Virus Type B Antigen - Final, Complete KALEB HARE MD May 05, 2017 14:20
== END 2017-05-05 11:50 | disposition home or self-care (01) ==
LOC: M ED 07:00 → M ED INP 09:00 → M MS5PR 10:18 → M PED 05-04 20:20
PROVIDERS: ADMIT Internal Medicine Nephrology; ATTEND Internal Medicine Nephrology
DX: J96.01 Acute respiratory failure with hypoxia (principal); J98.01 Acute bronchospasm; F17.210 Nicotine dependence, cigarettes, uncomplicated; E87.2 Acidosis; D72.829 Elevated white blood cell count, unspecified
CPT/HCPCS: 36415; 70487; 71010; 71275; 80048; 80076; 82550; 82553; 82803; 83605; 83735; 84100; 84436; 84443; 84703; 85025; 85610; 86140; 87040; 87804; 93000; 93041; 94640; 96361; 96374; 99285; J2280; J3475; Q9967

== ENCOUNTER → 2017-07-17 | Outpatient (CLI) | payer OTHER | LOC: M CARPUL 15:20 | DX: J45.909 Unspecified asthma, uncomplicated (principal) | CPT/HCPCS: 94060 ==

== ENCOUNTER → 2018-06-16 | Outpatient (REF) | payer OTHER ==
[~2018-06-16] MED LIST changes: +IBUPOTC PO; +LEVA1TAB2 PO; -LORA10TA2 PO; +LORA10TA3 PO; +NAPR-50 PO; -NAPR500T PO; +PROAAER10 INH; +SYMB80INH INH
[2018-06-18 15:05] LABS: HPV HYBRID CAPTURE II Negative (Negative)
== END ==
LOC: M SFHCPLAZ 11:43
PROVIDERS: ATTEND Family Medicine
DX: Z01.419 Encounter for gynecological examination (general) (routine) without abnormal findings (principal)

== ENCOUNTER 2019-03-17 15:00 | Emergency (ER) | payer OTHER ==
[~2019-03-17] VITALS: Ht 154.9 cm; Wt 54.5 kg
[~2019-03-17 15:00] MED LIST changes: -NAPR-50 PO; +NAPR-837 PO
[2019-03-17 15:01] VITALS: BP 122/74
[2019-03-17] MEDS ORDERED: CHLO0.124 MT (16:33)
[2019-03-17] MEDS ORDERED: IBUP-1022 PO (16:33)
[2019-03-17] MEDS ORDERED: CLIN150C14 PO (16:33)
== END 2019-03-17 16:42 | disposition home or self-care (01) ==
LOC: M ED 15:00
DX: K04.7 Periapical abscess without sinus (principal); Z88.1 Allergy status to other antibiotic agents; Z88.3 Allergy status to other anti-infective agents; Z88.0 Allergy status to penicillin; Z79.899 Other long term (current) drug therapy

== ENCOUNTER → 2019-07-09 | Outpatient (REF) | payer MEDICAID ==
[~2019-07-09] MED LIST changes: +CHLO0.124 MT; +CLIN150C14 PO
== END ==
LOC: M SFHCPLAZ 14:48
DX: Z00.00 Encounter for general adult medical examination without abnormal findings (principal); F41.1 Generalized anxiety disorder

== ENCOUNTER → 2019-09-24 | Outpatient (REF) | payer OTHER, MEDICAID ==
[2019-09-24 17:04] LABS: ALBUMIN 3.6 GM/DL (3.2-5.2); ALT/SGPT 28 U/L (12-78); BILIRUBIN,TOTAL 0.2 MG/DL (0.2-1.0); BLOOD UREA NITROGEN 9 MG/DL (7-18); CARBON DIOXIDE LEVEL 29 MEQ/L (21-32); CHLORIDE LEVEL 106 MEQ/L (98-107); CREATININE FOR GFR 0.77 MG/DL (0.55-1.30); GLOMERULAR FILTRATION RATE > 60.0 (>60); GLUCOSE, FASTING 94 MG/DL (70-100); POTASSIUM SERUM 4.4 MEQ/L (3.5-5.1); SODIUM LEVEL 139 MEQ/L (136-145); TOTAL PROTEIN 7.8 GM/DL (6.4-8.2)
[2019-09-24 17:54] LABS: HEPATITIS C VIRUS ABY INDEX 0.1 INDEX (<0.8); HIV 1&2 SCREEN CENTAUR NEGATIVE (NEGATIVE)
== END ==
LOC: M SFHCPLAZ 15:20
DX: Z00.00 Encounter for general adult medical examination without abnormal findings (principal)

== ENCOUNTER 2022-02-21 05:13 | Emergency (ER) | payer MEDICAID, OTHER ==
[~2022-02-21] VITALS: Ht 152.4 cm; Wt 65.1 kg
[~2022-02-21 05:13] MED LIST changes: -CLIN150C14 PO; +CLIN150C17 PO
[2022-02-21] MEDS ORDERED: SUBO8MIS SL (05:26)
[2022-02-21] MEDS ORDERED: IBUP80TA PO (07:43)
[2022-02-21] MEDS ORDERED: LIDO2SOL9 PO (07:43)
[2022-02-21] MEDS ORDERED: CLEO300C2 PO (07:43)
[2022-02-21] MEDS ORDERED: KETOROLAC 60MG 2ML VIAL IM ONE (07:45)
[2022-02-21] MEDS ORDERED: LIDOCAINE VISCOUS 2% SOLN 15ML UDC SS ONE (07:45)
[2022-02-21] MEDS ORDERED: CLINDAMYCIN 150MG CAPSULE PO ONE (07:45)
[2022-02-21 07:49] VITALS: BP 133/61
== END 2022-02-21 08:08 | disposition home or self-care (01) ==
LOC: M ED 05:13
DX: K08.89 Other specified disorders of teeth and supporting structures (principal); R22.0 Localized swelling, mass and lump, head; F17.200 Nicotine dependence, unspecified, uncomplicated; Z88.1 Allergy status to other antibiotic agents; Z88.8 Allergy status to other drugs, medicaments and biological substances
CPT/HCPCS: 96372; 99283; J1885

== ENCOUNTER → 2024-08-05 | Outpatient (REF) | payer OTHER ==
[~2024-08-05] MED LIST changes: +CLEO300C2 PO; +IBUP80TA PO; +LIDO100S29 PO; +SUBO8MIS SL
== END ==
LOC: M LAB REF 20:53
PROVIDERS: ATTEND Physician Assistant
DX: J02.9 Acute pharyngitis, unspecified (principal)